=== PATIENT | female | born 2000 | race Caucasian/White ===

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

== ENCOUNTER 2019-03-09 19:37 | Emergency (ER) | payer OTHER ==
--- OUTSIDE RECORDS SUMMARY | 2019-03-09 19:44 | XMS REPORT | Continuity of Care Document ---
:2000 External Reference #:[id number] Author Name Marsha Douglas MD (transmitted by agent of provider Lis Gonzales) Address [address], [place] [address] Problems Description No Information Available Social History Type Date Description Comments Sex Unknown ETOH Use Denies alcohol use Tobacco Use Start: Unknown Light tobacco smoker (10 or fewer cigarettes/day) Smoking Status Reviewed: 01/21/19 Light tobacco smoker (10 or fewer cigarettes/day) Exercise Type/Frequency Does not exercise Allergies, Adverse Reactions, Alerts Description No Known Drug Allergies Medications Active Medications SIG Qnty Indications Ordering Provider Date Esomeprazole Magnesium 1 by mouth every Unknown 40mg day Capsules DR Complete 2 tabs by mouth Unknown 14-0.4mg daily Tablets Immunizations Description No Information Available Vital Signs Date Vital Result Comment 01/21/2019 11:47am Weight 220.00 lb Heart Rate 84 /min BP Systolic Sitting 116 mmHg BP Diastolic Sitting 72 mmHg Respiratory Rate 16 /min Body Temperature 99.4 F Weight Percentile >97th Results Description No Information Available Procedures Description No Information Available Medical Devices Description No Information Available Encounters Description No Information Available Assessments Date Code Description Provider 01/21/2019 K80.20 Calculus of gallbladder without cholecystitis Marsha Douglas MD without obstruction Plan of Treatment No Information Available Functional Status Description No Information Available Mental Status Description No Information Available Referrals Description No Information Available
[2019-03-09 20:18] VITALS: BP 123/54
--- NOTE | 2019-03-09 20:26 | UC ---
Ear Complaint HPI - HPI Summary HPI Summary: 18-year-old female who is 13 weeks presents with 2 week history of left ear pain. Denies fever, chills, ear drainage, loss of hearing, tinnitus, vertigo, nasal congestion, runny nose, sore throat, or cough. - History of Current Complaint Chief Complaint: UCEar Stated Complaint: LEFT EAR Time Seen by Provider: 03/09/19 20:19 Hx Obtained From: Patient Hx Last Menstrual Period: 11/24/17 Pain Intensity: 9 - Allergies/Home Medications Allergies/Adverse Reactions: Allergies Allergy/AdvReac Type Severity Reaction Status Date / Time No Known Allergies Allergy Verified 03/09/19 20:07 Home Medications: Home Medications Acetaminophen [Acetaminophen Extra Strength] 1,000 mg PO Q6H PRN 03/09/19 [ History Confirmed 03/09/19] Pnv No.103/Folic/Om3s/Fish Oil [ Gummies] 2 each PO DAILY 03/09/19 [ History Confirmed 03/09/19] PMH/Surg Hx/FS Hx/Imm Hx Previously Healthy: Yes - Denies significant PMH - Surgical History Surgical History: Yes Surgery Procedure, Year, and Place: T & A. Ear tubes - Family History Known Family History: Positive: Cardiac Disease - Social History Occupation: Unemployed Lives: Alone Alcohol Use: None Substance Use Type: None Smoking Status (MU): Heavy Every Day Tobacco Smoker - Immunization History Vaccination Up to Date: Yes Review of Systems All Other Systems Reviewed And Are Negative: Yes Constitutional: Negative: Fever, Chills Eyes: Negative: Drainage, Eye Redness ENT: Positive: Ear Ache. Negative: Sore Throat, Nasal Discharge, Sinus Congestion, Sinus Pain/Tenderness Respiratory: Negative: Cough Cardiovascular: Positive: Negative Gastrointestinal: Positive: Negative Genitourinary: Positive: Negative Musculoskeletal: Positive: Negative Neurological: Positive: Negative Is Patient Immunocompromised?: No Physical Exam - Summary Physical Exam Summary: GENERAL APPEARANCE: Well developed, well nourished, alert and cooperative, and appears to be in no acute distress. EYES: Conjunctiva clear. No drainage. EARS: External auditory canals clear, bilateral TMs opaque with mild-moderate scarring without erythema or effusion, hearing grossly intact. NOSE: No nasal congestion or discharge. THROAT: Pharynx normal. Tonsils surgically absent. Uvula midline. NECK: Neck supple, non-tender without lymphadenopathy. CARDIAC: Normal S1 and S2. No S3, S4 or murmurs. Rhythm is regular. There is no peripheral edema, cyanosis or pallor. Extremities are warm and well perfused. Capillary refill is less than 2 seconds. Peripheral pulses intact. LUNGS: Clear to auscultation without rales, rhonchi, wheezing or diminished breath sounds. ABDOMEN: Positive bowel sounds. Soft, nondistended, nontender. No guarding or rebound. No masses or hepatosplenomegally. MUSKULOSKELETAL: ROM intact to all extremities. No joint erythema or tenderness. Normal muscular development. Normal gait. SKIN: Skin normal color, texture and turgor with no lesions or eruptions. Triage Information Reviewed: Yes Vital Signs: Initial Vital Signs Temp 99.4 F 03/09/19 20:14 Pulse 74 03/09/19 20:14 Resp 28 03/09/19 20:14 BP 123/54 03/09/19 20:14 Pulse Ox 100 03/09/19 20:14 Vital Signs Reviewed: Yes Ear Complaint Course/Dx - Course Course Of Treatment: 18-year-old female who is 13 weeks presents with 2 week history of left ear pain. Denies fever, chills, ear drainage, loss of hearing, tinnitus, vertigo, nasal congestion, runny nose, sore throat, or cough. Afebrile. Vital signs stable. Patient had bilaterally clear external auditory canals, bilateral opaque TMs with mild to moderate scarring without erythema or effusion , and otherwise unremarkable exam. Discussed with the patient that her symptoms were likely from eustachian tube dysfunction and have recommended that she start fluticasone nasal spray 2 sprays each nostril once daily. She was provided a dose of acetaminophen in the clinic for pain and recommended continued use of the acetaminophen as needed for pain. She is to follow-up with ENT in 1 week if no improvement in symptoms. Anticipatory guidance and warning symptoms were reviewed with the patient. Verbalizes understanding and agrees with plan of care. - Differential Dx/Diagnosis Differential Diagnosis/HQI/PQRI: Cerumen Impaction, Otitis Externa, Otitis Media , Other - Serous otitis, eustachian tube dysfunction Provider Diagnosis: Eustachian tube dysfunction Discharge ED - Sign-Out/Discharge Documenting (check all that apply): Patient Departure All imaging exams completed and their final reports reviewed: No Studies - Discharge Plan Condition: Stable Disposition: HOME Prescriptions: Fluticasone NASAL SPRAY 50MCG* [Flonase NASAL SPRAY 50MCG*] 2 spray BOTH NARES DAILY #1 btl Patient Education Materials: Serous Otitis Media (ED) Referrals: No Primary Care Phys,NOPCP [Primary Care Provider] - Quinten Patel MD [Medical Doctor] - 1 Week (You may also call [phone] to make an appointment at the [place] office.) Additional Instructions: Your exam showed no evidence of an ear infection. You pain is most likely from a condition called eustachian tube dysfunction which can allow for the build up of pressure and fluid behind the ear drum causing pain without infection. Start fluticasone nasal spray 2 sprays each nostril once daily. Use acetaminophen (Tylenol) according to directions as needed for pain. Follow-up with the ear, nose, and throat specialist in one week if symptoms are not improving. Call for an appointment. Seek immediate medical attention in the emergency room if you develop fever greater than 100.5 F, you have drainage or blood coming from the ear, loss of hearing, have dizziness or vertigo, or any worsening of symptoms. - Billing Disposition and Condition Condition: STABLE Disposition: Home - Attestation Statements Provider Attestation: This patient was not seen by me. I was available for consult. Chart reviewed. YANDY
[2019-03-09] MEDS ORDERED: Acetaminophen TAB* 325 MG PO ONE (20:39)
== END 2019-03-09 20:58 | disposition home or self-care (01) ==
LOC: UCCORT 19:37
DX: O99.89 Other specified diseases and conditions complicating pregnancy, childbirth and the puerperium (principal); F17.200 Nicotine dependence, unspecified, uncomplicated; H69.92 Unspecified Eustachian tube disorder, left ear; Z3A.13 13 weeks gestation of pregnancy
CPT/HCPCS: 99212; A9270-GY; G0463